=== PATIENT | female | born 1990 | race Caucasian/White ===

== ENCOUNTER 2016-11-24 17:12 | Emergency (ER) | payer OTHER ==
[~2016-11-24] VITALS: Wt 61.0 kg
[~2016-11-24 17:12] MED LIST: AZIT250T6 PO; AZIT500T3 PO; FERR28TA PO; IBUP-1542 PO; PHEN177L2 PO; PREN1TAB49 PO; RTPRO NEB
[2016-11-24 17:59] LABS: ADD SCAN DIFF NO
[2016-11-24 18:01] LABS: BASOPHILS % 0.4 % (0.0-2.0); EOSINOPHILS # 0.6 10^3/ul (0.0-0.5); EOSINOPHILS % 5.1 % (0.0-7.0); HEMATOCRIT 43.3 % (37.0-47.0); HEMOGLOBIN 14.6 g/dl (12.0-16.0); LYMPHOCYTES % 26.7 % (15.0-51.0); MEAN CORPUSCULAR HEMOGLOBIN 30.7 pg (29.0-33.0); MEAN CORPUSCULAR HGB CONC 33.7 g/dl (32.0-37.0); MEAN CORPUSCULAR VOLUME 91.2 fl (82.0-101.0); MEAN PLATELET VOLUME 9.5 fl (7.4-10.4); MONOCYTE # 0.6 10^3/ul (0.3-0.9); MONOCYTES % 5.1 % (0.0-11.0); NEUTROPHILS % 62.3 % (39.0-77.0); PLATELET COUNT 404 10^3/UL (140-415); RED BLOOD COUNT 4.75 10^6/ul (4.20-5.40); RED CELL DISTRIBUTION WIDTH 12.8 % (11.5-14.5); WHITE BLOOD COUNT 11.3 10^3/ul (4.8-10.8)
[2016-11-24 18:14] LABS: ALBUMIN 4.6 g/dl (3.3-4.9)
[2016-11-24 18:15] LABS: POTASSIUM 4.2 mmol/L (3.5-5.1)
[2016-11-24 18:17] LABS: ALBUMIN/GLOBULIN RATIO 1.24; BILIRUBIN,INDIRECT 0.1 mg/dl (0-1.1); BILIRUBIN,TOTAL 0.1 mg/dl (0.2-1.3); CREATININE 0.71 mg/dl (0.44-1.00); TOTAL PROTEIN 8.3 g/dl (6.1-8.1)
[2016-11-24 18:18] LABS: CALCIUM 9.3 mg/dl (8.4-10.2)
[2016-11-24 18:23] LABS: ADD UMIC YES; URINE BILIRUBIN (Dip) NEGATIVE (NEGATIVE); URINE BLOOD (Dip) NEGATIVE (NEGATIVE); URINE COLOR LT. YELLOW (YELLOW); URINE GLUCOSE (Dip) NEGATIVE (NEGATIVE); URINE KETONES (Dip) NEGATIVE (NEGATIVE); URINE LEUKOCYTE ESTERASE (Dip) 3+ (NEGATIVE); URINE NITRITE (Dip) NEGATIVE (NEGATIVE); URINE TOTAL PROTEIN (Dip) NEGATIVE (NEGATIVE); URINE UROBILINOGEN (Dip) 0.2 E.U./dL (0.1-1.0)
[2016-11-24 18:29] LABS: URINE RBCS NONE SEEN /HPF (0)
--- NOTE | 2016-11-24 19:19 | RADRPT ---
PROCEDURE: XR Pelvis CLINICAL INDICATION: IUD placement TECHNIQUE: An AP radiograph was submitted. COMPARISON: None FINDINGS: Osseous structures: appear well mineralized and intact with no fracture or destructive process iden tified. Joint spaces: The hip joints appear unremarkable. There is no distension of either joint capsule. the sacroiliac joints appear unremarkable without significant erosions or sclerosis. Soft tissues: An IUD projects to the superior pelvis just to the left of midline. IMPRESSION: 1. An IUD projects to the superior pelvis just to the left of midline. 2. Otherwise, unremarkable AP pelvis. Physician Sneha Date Time Electronically viewed and signed by Physician Sneha on 11/24/2016 19:19 /
--- NOTE | 2016-11-24 19:33 | ERD ---
ER Documentation Chief Complaint Date/Time DATE: 11/24/16 TIME: 19:31 Chief Complaint ABD PAIN, ONSET 1 WEEK, NO N/V/D, NO VB HPI This is a 26-year-old female presents to the emergency room for evaluation of abdominal pain which she localizes to the lower portion of her abdomen. She describes her pain as a cramping sensation sometimes worse with urination. She denies any vaginal bleeding or vaginal discharge associated with this. She does state that she has an intrauterine device. ROS All systems reviewed and are negative except as per history of present illness. Medications Home Meds Active Scripts Azithromycin* (Zithromax*) 500 Mg Tablet, 500 MG PO DAILY for 5 Days, TAB Prov:WILLEM MAURICIO MD 05/23/16 Ibuprofen* (Motrin*) 600 Mg Tab, 600 MG PO Q6, #15 TAB Prov:WILLEM MAURICIO MD 05/23/16 Phenylephrine/Dm/Acetaminop/Gg (Mucinex Hdjf-Fqy-Caxsmbndua Liquid) 177 Ml Liquid, 5 ML PO Q8 for 7 Days, ML Prov:MANAGMYNOROD,PROPSER P SURGICAL PATHOLOGIST 04/24/16 Ibuprofen* (Motrin*) 600 Mg Tab, 600 MG PO Q6, #30 TAB Prov:MANAGMYNORODPROSPER P SURGICAL PATHOLOGIST 04/24/16 Albuterol Sulfate* (Proventil* Neb) 0.083% Neb, 2.5 MG NEB Q4 Y for SHORTNESS OF BREATH, #30 EA Prov:MARTA LI I. SURGICAL PATHOLOGIST 05/30/15 Azithromycin* (Azithromycin*) 250 Mg Tablet, 250 MG PO DAILY, #4 TAB Prov:MARTA LI I. SURGICAL PATHOLOGIST 05/30/15 Azithromycin* (Zithromax*) 500 Mg Tablet, 500 MG PO DAILY for 1 Day, TAB Prov:MARTA LI I. SURGICAL PATHOLOGIST 05/30/15 Reported Medications Ferrous Sulfate (Ferrous Sulfate) 1 Tab Tablet, 1 TAB PO DAILY for 1 Day 09/19/11 Vits W-Ca,Fe,Fa(<1MG) () 1 Tab Tablet, 1 TAB PO DAILY for 1 Day 09/19/11 Allergies Allergies: Coded Allergies: Penicillins (Verified Allergy, Mild, 06/29/14) PMhx/Soc History of Surgery: No Anesthesia Reaction: No Hx Neurological Disorder: No Hx Respiratory Disorders: No Hx Cardiac Disorders: No Hx Psychiatric Problems: No Hx Miscellaneous Medical Probl: No Hx Alcohol Use: No Hx Substance Use: No Hx Tobacco Use: No Physical Exam Vitals Vital Signs Date Time Temp Pulse Resp B/P Pulse Ox O2 Delivery O2 Flow Rate FiO2 11/24/16 17:16 98.6 80 19 121/70 99 Physical Exam Const: No acute distress Head: Atraumatic Eyes: Normal Conjunctiva ENT: Normal External Ears, Nose and Mouth. Neck: Full range of motion..~ No meningismus. Resp: Clear to auscultation bilaterally Cardio: Regular rate and rhythm, no murmurs Abd: Soft, non tender, non distended. Normal bowel sounds Skin: No petechiae or rashes Back: No midline or flank tenderness Ext: No cyanosis, or edema Neur: Awake and alert Psych: Normal Mood and Affect Result Diagram: 11/24/160 11/24/16 1750 Results 24 hrs Laboratory Tests Test 11/24/16 17:50 White Blood Count 11.310^3/ul Red Blood Count 4.7510^6/ul Hemoglobin 14.6g/dl Hematocrit 43.3% Mean Corpuscular Volume 91.2fl Mean Corpuscular Hemoglobin 30.7pg Mean Corpuscular Hemoglobin Concent 33.7g/dl Red Cell Distribution Width 12.8% Platelet Count 85020^3/UL Mean Platelet Volume 9.5fl Neutrophils % 62.3% Lymphocytes % 26.7% Monocytes % 5.1% Eosinophils % 5.1% Basophils % 0.4% Nucleated Red Blood Cells % 0.0/100WBC Neutrophils # 7.010^3/ul Lymphocytes # 3.010^3/ul Monocytes # 0.610^3/ul Eosinophils # 0.610^3/ul Basophils # 0.010^3/ul Nucleated Red Blood Cells # 0.010^3/ul Urine Color LT. YELLOW Urine Clarity CLEAR Urine pH 7.0 Urine Specific [place] 1.010 Urine Ketones NEGATIVE Urine Nitrite NEGATIVE Urine Bilirubin NEGATIVE Urine Urobilinogen 0.2 E.U./dL Urine Leukocyte Esterase 3+ Urine Microscopic RBC NONE SEEN/HPF Urine Microscopic WBC 2-5/HPF Urine Epithelial Cells OCCASIONAL Urine Hemoglobin NEGATIVE Urine Glucose NEGATIVE% Urine Total Protein NEGATIVE Urine Test NEGATIVE Sodium Level 141mmol/L Potassium Level 4.2mmol/L Chloride Level 102mmol/L Carbon Dioxide Level 26mmol/L Anion Gap 17 Blood Urea Nitrogen 12mg/dl Creatinine 0.71mg/dl Glucose Level 101mg/dl Calcium Level 9.3mg/dl Total Bilirubin 0.1mg/dl Direct Bilirubin 0.00mg/dl Indirect Bilirubin 0.1mg/dl Aspartate Amino Transf (AST/SGOT) 24IU/L Alanine Aminotransferase (ALT/SGPT) 33IU/L Alkaline Phosphatase 92IU/L Total Protein 8.3g/dl Albumin 4.6g/dl Globulin 3.70g/dl Albumin/Globulin Ratio 1.24 Lipase 151U/L Procedures/MDM X-ray Pelvis 1V Interpreted by me: Bones: [No fracture] Joints: [No dislocation] Foreign body: Intrauterine device This 26-year-old female presents to the emergency room for evaluation of lower abdominal discomfort. When I evaluated this patient she did not have an acute abdomen, nonsurgical abdomen. Urinalysis does reveal 3+ leukocyte Estrace. Lab work is within normal limits and x-ray of the pelvis does not demonstrate malpositioning of the intrauterine device. This patient will be discharged at this time with a prescription for ciprofloxacin for acute cystitis Departure Diagnosis: Primary Impression: Acute cystitis Condition: Stable MARLENE BELTRAN DO November 24, 2016 19:33
[2016-11-24] MEDS ORDERED: CIPR500T4 PO (19:34)
== END 2016-11-24 19:48 | disposition home or self-care (01) ==
LOC: FTE 17:12
DX: N30.00 Acute cystitis without hematuria (principal)
CPT/HCPCS: 72170; 80053; 81001; 83690; 84703; 85025; Z7502

== ENCOUNTER 2017-03-29 20:43 | Emergency (ER) | payer SELFPAY ==
[~2017-03-29] VITALS: Ht 160 cm; Wt 62.5 kg
[~2017-03-29 20:43] MED LIST changes: +CIPR500T4 PO
[2017-03-29 20:49] VITALS: Ht 160 cm; Wt 62.5 kg
== END 2017-03-29 21:37 | disposition left against medical advice (07) ==
LOC: FTE 20:43
DX: Z53.21 Procedure and treatment not carried out due to patient leaving prior to being seen by health care provider (principal)

== ENCOUNTER 2017-05-13 07:21 | Emergency (ER) | payer OTHER ==
[~2017-05-13] VITALS: Ht 157.5 cm; Wt 62.2 kg
[2017-05-13 07:26] VITALS: Ht 157.5 cm; Wt 62.2 kg
[2017-05-13] MEDS ORDERED: ACYC400T2 PO (07:43)
[2017-05-13] MEDS ORDERED: HYDR-906 PO (08:10)
--- NOTE | 2017-05-13 09:13 | ERD ---
ER Documentation Chief Complaint Chief Complaint Complains of a rash/bite on left arm HPI This is a 19-year-old female presenting to emergency department for pruritic rash to left forearm. Patient states she had burning sensation in the forearm and then about 12 hours later developed pruritic rash. Patient also states rash is painful. No sick contacts. No fevers or chills. No shortness of breath or difficulty breathing. No wheezing. No new lotion, soaps, food or medications. Patient did not take any medications for this. ROS All systems reviewed and are negative except as per history of present illness. Medications Home Meds Active Scripts Acyclovir* (Acyclovir*) 400 Mg Tablet, 400 MG PO TID for 10 Days, TAB Prov:CLARITA RICHARDSON NP 05/13/17 Ciprofloxacin Hcl* (Ciprofloxacin Hcl*) 500 Mg Tablet, 500 MG PO BID for 7 Days , TAB Prov:MARLENE BELTRAN DO 11/24/16 Azithromycin* (Zithromax*) 500 Mg Tablet, 500 MG PO DAILY for 5 Days, TAB Prov:WILLEM MAURICIO MD 05/23/16 Ibuprofen* (Motrin*) 600 Mg Tab, 600 MG PO Q6, #15 TAB Prov:WILLEM MAURICIO MD 05/23/16 Phenylephrine/Dm/Acetaminop/Gg (Mucinex Stbi-Sgv-Hksuecpdkq Liquid) 177 Ml Liquid, 5 ML PO Q8 for 7 Days, ML Prov:PROSPER VELEZ NP 04/24/16 Ibuprofen* (Motrin*) 600 Mg Tab, 600 MG PO Q6, #30 TAB Prov:PROSPER VELEZ DELIVERY ROOM SUPERVISOR 04/24/16 Albuterol Sulfate* (Proventil* Neb) 0.083% Neb, 2.5 MG NEB Q4 Y for SHORTNESS OF BREATH, #30 EA Prov:MARTA LI NP 05/30/15 Azithromycin* (Azithromycin*) 250 Mg Tablet, 250 MG PO DAILY, #4 TAB Prov:MARTA LI NP 05/30/15 Azithromycin* (Zithromax*) 500 Mg Tablet, 500 MG PO DAILY for 1 Day, TAB Prov:MARTA LI NP 05/30/15 Reported Medications Ferrous Sulfate (Ferrous Sulfate) 1 Tab Tablet, 1 TAB PO DAILY for 1 Day 09/19/11 Vits W-Ca,Fe,Fa(<1MG) () 1 Tab Tablet, 1 TAB PO DAILY for 1 Day 09/19/11 Discontinued Scripts Hydrocodone/Acetaminophen ([place] 5-325 Tablet) 1 Each Tablet, 1 TAB PO Q6H Y for PAIN, #7 TAB Prov:CLARITA RICHARDSON DELIVERY ROOM SUPERVISOR 05/13/17 Allergies Allergies: Coded Allergies: Penicillins (Verified Allergy, Mild, 11/24/16) PMhx/Soc History of Surgery: No Anesthesia Reaction: No Hx Neurological Disorder: No Hx Respiratory Disorders: Yes (asthma) Hx Cardiac Disorders: No Hx Psychiatric Problems: No Hx Miscellaneous Medical Probl: No Hx Alcohol Use: No Hx Substance Use: No Hx Tobacco Use: No Physical Exam Vitals Vital Signs Date Time Temp Pulse Resp B/P Pulse Ox O2 Delivery O2 Flow Rate FiO2 05/13/17 07:26 99.2 80 20 124/82 100 Physical Exam Const: no acute distress, alert Head: Atraumatic Eyes: Normal Conjunctiva ENT: Normal External Ears, Nose and Mouth. Neck: Full range of motion..~ No meningismus. Resp: Clear to auscultation bilaterally. No wheezing, rhonchi or crackles. No stridor or labored breathing. Skin: Patch of vesicular lesions to left forearm with white center, dorsal aspect. no drainage or bleeding. no lymphatic streaking. no surrounding erythema. Back: No midline or flank tenderness Ext: No cyanosis, or edema Neur: Awake and alert Psych: Normal Mood and Affect Procedures/MDM MDM: This is a 27-year-old female presenting to emergency department for pruritic, painful rash to dorsal aspect of left forearm. Patient is afebrile vital signs are stable. No signs or symptoms of respiratory distress. No angioedema. Patient likely has herpes simplex virus. Low suspicion for allergic reaction or contact dermatitis or abscess Patient is appropriate for outpatient management will be given prescription for acyclovir. Instructed patient to follow-up with primary care provider in the next 2-3 days for reassessment and additional management. Return to ED for any high fever, chest pain, difficulty breathing, shortness breath, wheezing, vomiting, diarrhea, abdominal pain or any new or worsening symptoms. Patient verbalizes understanding. All questions answered at discharge. Disclaimer: Inadvertent spelling and grammatical errors are likely due to EHR/ dictation software use and do not reflect on the overall quality of patient care. Also, please note that the electronic time recorded on this note does not necessarily reflect the actual time of the patient encounter. Departure Diagnosis: Primary Impression: Rash and nonspecific skin eruption Condition: Stable Patient Instructions: The Herpes Virus Referrals: [facility] YOU HAVE RECEIVED A MEDICAL SCREENING EXAM AND THE RESULTS INDICATE THAT YOU DO NOT HAVE A CONDITION THAT REQUIRES URGENT TREATMENT IN THE EMERGENCY DEPARTMENT. FURTHER EVALUATION AND TREATMENT OF YOUR CONDITION CAN WAIT UNTIL YOU ARE SEEN IN YOUR DOCTORS OFFICE WITHIN THE NEXT 1-2 DAYS. IT IS YOUR RESPONSIBILITY TO MAKE AN APPOINTMENT FOR FOLOW-UP CARE. IF YOU HAVE A PRIMARY DOCTOR --you should call your primary doctor and schedule an appointment IF YOU DO NOT HAVE A PRIMARY DOCTOR YOU CAN CALL OUR PHYSICIAN REFERRAL HOTLINE AT IF YOU CAN NOT AFFORD TO SEE A PHYSICIAN YOU CAN CHOSE FROM THE FOLLOWING [facility] [address] [facility] [address] [facility] [facility] [address] [facility] [address] [facility] [address] [facility]. [facility]. [address] [facility] YOU HAVE RECEIVED A MEDICAL SCREENING EXAM AND THE RESULTS INDICATE THAT YOU DO NOT HAVE A CONDITION THAT REQUIRES URGENT TREATMENT IN THE EMERGENCY DEPARTMENT. FURTHER EVALUATION AND TREATMENT OF YOUR CONDITION CAN WAIT UNTIL YOU ARE SEEN IN YOUR DOCTORS OFFICE WITHIN THE NEXT 1-2 DAYS. IT IS YOUR RESPONSIBILITY TO MAKE AN APPOINTMENT FOR FOLOW-UP CARE. IF YOU HAVE A PRIMARY DOCTOR --you should call your primary doctor and schedule and appointment IF YOU DO NOT HAVE A PRIMARY DOCTOR YOU CAN CALL OUR PHYSICIAN REFERRAL HOTLINE AT . IF YOU CAN NOT AFFORD TO SEE A PHYSICIAN YOU CAN CHOSE FROM THE FOLLOWING [facility]: [facility] [place] [address] [place] [address] [facility] [address] [place] [address] [facility] [address] [place] [address] Additional Instructions: Call your primary care doctor TOMORROW for an appointment during the next 2-3 days.See the doctor sooner or return here if your condition worsens before your appointment time. Return to ED for any high fever, chest pain, difficulty breathing, shortness breath, wheezing, vomiting, diarrhea, abdominal pain or any new or worsening symptoms. CLARITA RICHARDSON NP May 13, 2017 09:13
== END 2017-05-13 08:06 | disposition home or self-care (01) ==
LOC: FTE 07:21
DX: R21 Rash and other nonspecific skin eruption (principal); J45.909 Unspecified asthma, uncomplicated
CPT/HCPCS: 99283

== ENCOUNTER 2017-06-19 18:02 | Emergency (ER) | payer MEDICAID, OTHER ==
[~2017-06-19] VITALS: Ht 170.2 cm; Wt 64.1 kg
[~2017-06-19 18:02] MED LIST changes: +ACYC400T2 PO; +AZIT250T13 PO; -AZIT250T6 PO
[2017-06-19 18:14] VITALS: Ht 170.2 cm; Wt 64.1 kg
[2017-06-19] MEDS ORDERED: IBUPROFEN 600 MG TAB PO ONE (20:00)
[2017-06-19 20:57] LABS: ADD UMIC YES; UR ASCORBIC ACID NEGATIVE (NEGATIVE); UR BACTERIA FEW /HPF (NONE SEEN); UR BILIRUBIN (Dip) NEGATIVE (NEGATIVE); UR BLOOD (Dip) NEGATIVE (NEGATIVE); UR CLARITY SLIGHTLY CLOUDY (CLEAR); UR COLOR YELLOW (YELLOW); UR GLUCOSE (Dip) NEGATIVE (NEGATIVE); UR KETONES (Dip) NEGATIVE (NEGATIVE); UR LEUKOCYTE ESTERASE (Dip) 3+ Leu/ul (NEGATIVE); UR NITRITE (Dip) NEGATIVE (NEGATIVE); UR RBC 4 /HPF (0-5); UR SPECIFIC GRAVITY (Dip) 1.008 (1.003-1.030); UR SQUAMOUS EPITHELIAL CELL FEW /HPF (FEW); UR TOTAL PROTEIN (Dip) NEGATIVE (NEGATIVE); UR UROBILINOGEN (Dip) NEGATIVE (NEGATIVE)
--- NOTE | 2017-06-19 21:35 | RADRPT ---
PROCEDURE: US Non-OB Pelvis. CLINICAL INDICATION: Pelvic pain, irregular periods after IUD placed in March 2017. TECHNIQUE: Multiple sonographic images of the pelvis were obtained utilizing a transabdominal tech nique. The images were reviewed on a PACS workstation. COMPARISON: None. FINDINGS: The uterus is visualized and measures 7.5 x 3.9 x 6.3 cm. There is an intrauterine device in place w ithin the endometrial canal. The endometrial thickness is not clearly visualized. The right ovary measures 3.5 x 2.0 x 3.6 cm. The left ovary measures 3.2 x 1.3 x 2.4 cm. Blood flow is demonstrated to both ovaries. No adnexal masses are noted. There is no evidence of free fluid. IMPRESSION: 1. Intrauterine device in place. The endometrial thickness is not clearly visualized. 2. Normal appearance of the ovaries. RPTAT: HTAR .Chepe Allen MD, Date Time Electronically viewed and signed by .Chepe Allen MD, on 06/19/2017 21:34 .R/
[2017-06-19] MEDS ORDERED: CEPH-443 PO (21:42)
[2017-06-19] MEDS ORDERED: IBUP400T22 PO (21:42)
--- NOTE | 2017-06-19 23:34 | ERD ---
ER Documentation Chief Complaint Chief Complaint Pt with breast, AP, and pelvic pain X 3 weeks. HPI This is a 27-year-old female presenting to the emergency department complaining of bilateral breast pain and on and off pelvic pain for the past few weeks. She states that her last menstrual period was May and her periods are usually irregular. She states that she has an IUD in place. She denies any fevers, dysuria, vomiting diarrhea constipation. ROS All systems reviewed and are negative except as per history of present illness. Medications Home Meds Active Scripts Cephalexin* (Keflex*) 500 Mg Capsule, 500 MG PO BID for 5 Days, CAP Prov:EKTA MCLEAN PA-C 06/19/17 Ibuprofen* (Motrin*) 400 Mg Tab, 400 MG PO Q6H Y for PAIN AND OR ELEVATED TEMP, #30 TAB Prov:EKTA MCLEAN PA-C 06/19/17 Acyclovir* (Acyclovir*) 400 Mg Tablet, 400 MG PO TID for 10 Days, TAB Prov:CLARITA RICHARDSON NP 05/13/17 Ciprofloxacin Hcl* (Ciprofloxacin Hcl*) 500 Mg Tablet, 500 MG PO BID for 7 Days , TAB Prov:MARLENE BELTRAN DO 11/24/16 Azithromycin* (Zithromax*) 500 Mg Tablet, 500 MG PO DAILY for 5 Days, TAB Prov:WILLEM MAURICIO MD 05/23/16 Ibuprofen* (Motrin*) 600 Mg Tab, 600 MG PO Q6, #15 TAB Prov:WILLEM MAURICIO MD 05/23/16 Phenylephrine/Dm/Acetaminop/Gg (Mucinex Zkma-Eky-Cvqvekzsgw Liquid) 177 Ml Liquid, 5 ML PO Q8 for 7 Days, ML Prov:MANAGMYNOROD,PROSPER P ORGAN BUILDER 04/24/16 Ibuprofen* (Motrin*) 600 Mg Tab, 600 MG PO Q6, #30 TAB Prov:MIKAELAODPROSPER P ORGAN BUILDER 04/24/16 Albuterol Sulfate* (Proventil* Neb) 0.083% Neb, 2.5 MG NEB Q4 Y for SHORTNESS OF BREATH, #30 EA Prov:MARTA LI NP 05/30/15 Azithromycin* (Azithromycin*) 250 Mg Tablet, 250 MG PO DAILY, #4 TAB Prov:MARTA LI I. ORGAN BUILDER 05/30/15 Azithromycin* (Zithromax*) 500 Mg Tablet, 500 MG PO DAILY for 1 Day, TAB Prov:MARTA LI I. ORGAN BUILDER 05/30/15 Reported Medications Ferrous Sulfate (Ferrous Sulfate) 1 Tab Tablet, 1 TAB PO DAILY for 1 Day 09/19/11 Vits W-Ca,Fe,Fa(<1MG) () 1 Tab Tablet, 1 TAB PO DAILY for 1 Day 09/19/11 Allergies Allergies: Coded Allergies: Penicillins (Verified Allergy, Mild, 11/24/16) PMhx/Soc History of Surgery: No Anesthesia Reaction: No Hx Neurological Disorder: No Hx Respiratory Disorders: Yes (asthma) Hx Cardiac Disorders: No Hx Psychiatric Problems: No Hx Miscellaneous Medical Probl: No Hx Alcohol Use: No Hx Substance Use: No Hx Tobacco Use: No Smoking Status: Never smoker Physical Exam Vitals Vital Signs Date Time Temp Pulse Resp B/P Pulse Ox O2 Delivery O2 Flow Rate FiO2 06/19/17 18:14 97.7 76 18 133/92 99 Physical Exam GENERAL: well-developed/well-nourished, in no apparent distress, non-toxic appearing HENT: NC/AT, moist mucous membranes EYES: Conjunctiva normal NECK: Supple, no lymphadenopathy PULM: CTA bilaterally, no rales, rhonchi, or wheezing heard CV: Normal S1S2, RRR, good capillary refill GI: Soft, non-distended, tender to palpation Normal bowel sounds, no masses or organomegaly felt on exam No gross peritonitis, no bruits Negative Rovsing, negative King, negative McBurney's point, Negative CVAT BACK: No masses EXT: No clubbing, cyanosis, or edema NEURO: Alert and Orientated SKIN: Intact, normal turgor BREAST: Fibrocystic breast noted PSYCH: Normal mood and mentation Results 24 hrs Laboratory Tests Test 06/19/17 20:00 Urine Color YELLOW Urine Clarity SLIGHTLY CLOUDY Urine pH 7.0 Urine Specific [place] 1.008 Urine Ketones NEGATIVEmg/dL Urine Nitrite NEGATIVEmg/dL Urine Bilirubin NEGATIVEmg/dL Urine Urobilinogen NEGATIVEmg/dL Urine Leukocyte Esterase 3+Jossie/ul Urine Microscopic RBC 4/HPF Urine Microscopic WBC 8/HPF Urine Squamous Epithelial Cells FEW/HPF Urine Bacteria FEW/HPF Urine Hemoglobin NEGATIVEmg/dL Urine Glucose NEGATIVEmg/dL Urine Total Protein NEGATIVEmg/dl Current Medications Medications (Trade) Dose Ordered Sig/Radha Route PRN Reason Start Time Stop Time Status Last Admin Dose Admin Ibuprofen (Motrin) 600 mg ONCE ONCE PO 06/19/17 20:00 06/19/17 20:01 DC 06/19/17 20:46 Procedures/MDM 87-year-old female presents to the emergency department complaining of bilateral breast pain likely fibrocystic breast changes however have discussed with her that she will need to continue to follow-up with her primary care physician to get further evaluation management. Patient also complains of pelvic pain which is likely due to urinary tract infection or other hormonal changes. There is no evidence of any overt ovarian torsion or ruptured ovarian cyst. Pelvic ultrasound shows the IUD is in place. Urinalysis showed positive leukocyte esterase for a urinary tract infection. Patient was given Prescription for Keflex and ibuprofen. Discussed return to the ER for any worsening signs or symptoms Departure Diagnosis: Primary Impression: Fibrocystic breast changes Additional Impression: UTI (urinary tract infection) Condition: Stable Patient Instructions: Understanding Urinary Tract Infections (UTIs), Fibrocystic Breast Disease, Presumed Additional Instructions: FOLLOW UP WITH YOUR PRIMARY CARE PHYSICIAN TOMORROW.Return to this facility if you are not improving as expected. Take all medicines as directed. Return to this facility if you are not improving as expected. EKTA MCLEAN PA-C Jun 19, 2017 23:34
== END 2017-06-19 21:50 | disposition home or self-care (01) ==
LOC: FTE 18:02
DX: N60.01 Solitary cyst of right breast (principal); N60.02 Solitary cyst of left breast; N39.0 Urinary tract infection, site not specified; J45.909 Unspecified asthma, uncomplicated; R10.2 Pelvic and perineal pain
CPT/HCPCS: 76856; 81001; Z7502; Z7610

== ENCOUNTER 2017-08-06 05:31 | Emergency (ER) | END 2017-08-06 09:20 | disposition home or self-care (01) ==

== ENCOUNTER 2017-11-27 05:14 | Emergency (ER) | END 2017-11-27 07:25 | disposition home or self-care (01) ==

== ENCOUNTER 2017-12-30 20:33 | Emergency (ER) | END 2017-12-30 22:20 | disposition home or self-care (01) ==

== ENCOUNTER 2018-06-13 10:08 | Emergency (ER) | END 2018-06-13 11:27 | disposition home or self-care (01) ==

== ENCOUNTER 2018-10-03 14:52 | Emergency (ER) | payer SELFPAY ==
[~2018-10-03] VITALS: Ht 152.4 cm; Wt 66.0 kg
[~2018-10-03 14:52] MED LIST changes: +ALBU18HF INHALATION; +ALBU2.5V3 NEB; +ALBU8.5H8 INH; +AZIT250T PO; +BENZ-6 PO; +CEPH-443 PO; +CETI10CA PO; +CYCL10TA7 PO; +FLUT9.9S NASAL; +GUAI120S26 PO; +HYDR-4011 PO; +IBUP-1561 PO; +PRED20TA PO
[2018-10-03 15:04] VITALS: BP 118/75; PULSE 88; RESP 16; Ht 152.4 cm; Wt 66.0 kg
--- NOTE | 2018-10-03 16:47 | ERD ---
ER Documentation Chief Complaint Chief Complaint RASH X 1 MONTH, INCREASED ITCHING WITH SWOLLEN FINGERS HPI 28-year-old female with past medical history of asthma, eczema who presents with 1 month complaint of rash on both hands. Patient having nontender nonpainful itchy rash which started in the webbing of right hand subsequently developed on the left side but worse still on the right. Has suffered from intermittent exam of flareups in the past. Has been using eczema lotion [place] as well as Neosporin with minimal improvement in symptoms. She otherwise denies fevers chills numbness or weakness and both hands. She has an appointment with her PMD tomorrow but decided to present to the ED because she was concerned the blisters are getting worse. At time of examination patient is nontoxic-appearing. Triage vital signs without fever with rest of vitals within normal limits. She otherwise has been pretty much healthy and reports no recent illness. Denies bed bugs at home or persons at home with similar symptoms. ROS All systems reviewed and are negative except as per history of present illness. Medications Home Meds Active Scripts Albuterol Sulfate* (Ventolin HFA*) 18 Gm Hfa.aer.ad, 2 PUFF INHALATION Q4H, #1 INHALER Prov:KEDAR CONNOR PA-C 06/13/18 Benzonatate* (Tessalon Perle*) 100 Mg Capsule, 100 MG PO Q8H PRN for COUGH, #20 CAP Prov:KEDAR CONNOR PA-C 06/13/18 Azithromycin* (Zithromax*) 250 Mg Tablet, 250 MG PO .ZPACK DIRECTED, #6 TAB TAKE 500 MG (2 TABS) THE FIRST DAY THEN 250 MG (1 TAB) DAYS 2-5 Prov:KEDAR CONNOR PA-C 06/13/18 Cyclobenzaprine Hcl* (Cyclobenzaprine Hcl*) 10 Mg Tablet, 10 MG PO TID, #15 TAB Prov:DEVORAH MEHTA NP 12/30/17 Hydrocodone/Acetaminophen (Daphne 5-325 Tablet) 1 Each Tablet, 1 TAB PO Q6H PRN for PAIN, #7 TAB Prov:DEVORAH MEHTA NP 18 Ibuprofen* (Motrin*) 600 Mg Tab, 600 MG PO Q6H PRN for PAIN AND OR ELEVATED TEMP, #30 TAB Prov:DEVORAH MEHTA NP 12/30/17 Prednisone* (Prednisone*) 20 Mg Tab, 40 MG PO DAILY for 4 Days, TAB Prov:ROGERIO MERCADOC 11/27/17 Fluticasone Propionate (Flonase Allergy Relief) 9.9 Ml [place].susp, 2 SPRAY NASAL DAILY, #1 BOTTLE TO EACH NOSTRIL Prov:ROGERIO MERCADOC 11/27/17 Albuterol Sulfate* (Albuterol Sulfate* Neb) 0.083%-3 Ml Neb, 2.5 MG NEB Q4 PRN for SHORTNESS OF BREATH, #30 EA Prov:ROGERIO MERCADO PA-C 11/27/17 Albuterol Sulfate* (Ventolin HFA*) 18 Gm Hfa.aer.ad, 2 PUFF INHALATION Q4H, #1 INHALER Prov:ROGERIO MERCADO PA-C 11/27/17 Cetirizine Hcl* (Zyrtec*) 10 Mg Capsule, 10 MG PO DAILY, #14 TAB.CHEW Prov:ROGERIO MERCADOC 11/27/17 Azithromycin* (Zithromax*) 250 Mg Tablet, 250 MG PO .ZPACK DIRECTED, #6 TAB TAKE 500 MG (2 TABS) THE FIRST DAY THEN 250 MG (1 TAB) DAYS 2-5 Prov:ROGERIO MERCADOC 11/27/17 Ibuprofen* (Motrin*) 600 Mg Tab, 600 MG PO Q6H PRN for PAIN AND OR ELEVATED TEMP, #30 TAB Prov:DEVORAH MEHTA NP 11/17/17 Cetirizine Hcl* (Zyrtec*) 10 Mg Capsule, 10 MG PO DAILY, #30 TAB.CHEW Prov:DEVORAH MEHTA NP 11/17/17 Ejyppglygxt-K-Qcstuuybgq Hb* (Guaifenesin* DM Syrup) 120 Ml Syrup, 10 ML PO Q4H PRN for COUGH, #120 ML Prov:DEVORAH MEHTA NP 11/17/17 Albuterol Sulfate* (Proair HFA*) 8.5 Gm Hfa.aer.ad, 2 PUFF INH Q4H PRN for WHEEZING AND SOB, #1 INHALER Prov:DEVORAH MEHTA NP 11/17/17 Prednisone* (Prednisone*) 20 Mg Tab, 40 MG PO DAILY for 5 Days, TAB Prov:TANGELA DUNHAMC 08/06/17 Cephalexin* (Keflex*) 500 Mg Capsule, 500 MG PO BID for 5 Days, CAP Prov:EKTA MCLEANC 06/19/17 Ibuprofen* (Motrin*) 400 Mg Tab, 400 MG PO Q6H PRN for PAIN AND OR ELEVATED TEMP, #30 TAB Prov:EKTA MCLEAN PA-C 06/19/17 Acyclovir* (Acyclovir*) 400 Mg Tablet, 400 MG PO TID for 10 Days, TAB Prov:CLARITA RICHARDSON NP 05/13/17 Ciprofloxacin Hcl* (Ciprofloxacin Hcl*) 500 Mg Tablet, 500 MG PO BID for 7 Days, TAB Prov:MARLENE BELTRAN DO 11/24/16 Azithromycin* (Zithromax*) 500 Mg Tablet, 500 MG PO DAILY for 5 Days, TAB Prov:WILLEM MAURICIO MD 05/23/16 Ibuprofen* (Motrin*) 600 Mg Tab, 600 MG PO Q6, #15 TAB Prov:WILLEM MAURICIO MD 05/23/16 Phenylephrine/Dm/Acetaminop/Gg (Mucinex Rwkp-Beu-Mprxswhfjf Liquid) 177 Ml Liquid, 5 ML PO Q8 for 7 Days, ML Prov:PROSPER VELEZ P [employer] 04/24/16 Ibuprofen* (Motrin*) 600 Mg Tab, 600 MG PO Q6, #30 TAB Prov:PROSPER VELEZ P [employer] 04/24/16 Albuterol Sulfate* (Proventil* Neb) 0.083% Neb, 2.5 MG NEB Q4 PRN for SHORTNESS OF BREATH, #30 EA Prov:MARTA LI I. [employer] 05/30/15 Azithromycin* (Azithromycin*) 250 Mg Tablet, 250 MG PO DAILY, #4 TAB Prov:MARTA LI I. [employer] 05/30/15 Azithromycin* (Zithromax*) 500 Mg Tablet, 500 MG PO DAILY for 1 Day, TAB Prov:MARTA LI I. [employer] 05/30/15 Reported Medications Ferrous Sulfate (Ferrous Sulfate) 1 Tab Tablet, 1 TAB PO DAILY for 1 Day 09/19/11 Vits W-Ca,Fe,Fa(<1MG) () 1 Tab Tablet, 1 TAB PO DAILY for 1 Day 09/19/11 Allergies Allergies: Coded Allergies: Penicillins (Verified Allergy, Mild, 06/13/18) PMhx/Soc History of Surgery: No Anesthesia Reaction: No Hx Neurological Disorder: No Hx Respiratory Disorders: Yes (ASTHMA ) Hx Cardiac Disorders: No Hx Psychiatric Problems: No Hx Miscellaneous Medical Probl: No Hx Alcohol Use: No Hx Substance Use: No Hx Tobacco Use: No Physical Exam Vitals Vital Signs Date Temp Pulse Resp B/P (MAP) Pulse Ox O2 O2 Flow FiO2 Time Delivery Rate 10/03/18 99.6 88 16 118/75 97 15:04 (89) Physical Exam I have reviewed the triage vital signs. Const: Well nourished, well developed, appears stated age Eyes: PERRL, no conjunctival injection HENT: NCAT, Neck supple without meningismus CV: RRR, Warm, well-perfused extremities RESP: CTAB, Unlabored respiratory effort GI: soft, non-tender, non-distended, no masses MSK: No gross deformities appreciated Skin: Warm, dry. small vesicles to b/l hands, areas of excoriation. no other areas of rash, no other lesions noted Neuro: grossly non focal Psych: Appropriate mood and affect. Procedures/MDM 28 yo Female presents with 1 month complaint of rash on both hands. Symptoms likely represent flare of chronic eczema given her atopy. She has no signs or symptoms but given concern for systemic infection such as septic joint or any other emergent etiology of rash. I have advised her to follow-up with her PMD as scheduled tomorrow for further evaluation of her complaints. DISPOSITION PLAN: We discussed follow up with the patient's primary care doctor within 24 to 48 hours. Patient counseled regarding my diagnostic impression and care plan. Prior to discharge all questions answered. Pt agrees with treatment plan and understands strict return precautions. Precautionary instructions provided including instructions to return to the ER if not improving or for any worsening or changing symptoms or concerns. Departure Diagnosis: Primary Impression: Eczema Additional Impression: Rash and nonspecific skin eruption Condition: Stable Patient Instructions: Atopic Dermatitis (Eczema) Additional Instructions: Call your primary care doctor TOMORROW for an appointment during the next 2-3 days.See the doctor sooner or return here if your condition worsens before your appointment time. Follow up with your PMD tomorrow as scheduled. BENITA BELL PA-C Oct 03, 2018 16:47
== END 2018-10-03 17:32 | disposition home or self-care (01) ==
LOC: FTE 14:52
DX: L30.9 Dermatitis, unspecified (principal); J45.909 Unspecified asthma, uncomplicated
CPT/HCPCS: 99282

== ENCOUNTER 2019-02-20 19:19 | Emergency (ER) | payer OTHER ==
[~2019-02-20] VITALS: Ht 154.9 cm; Wt 58.0 kg
[~2019-02-20 19:19] MED LIST changes: +BUTA1CAP38 PO; +GUAI120S25 PO; -GUAI120S26 PO
[2019-02-20 19:42] VITALS: BP 126/77; PULSE 76; RESP 16; Ht 154.9 cm; Wt 58.0 kg
[2019-02-20] MEDS ORDERED: ACETAMINOPHEN 325 MG TAB PO ONE (21:30)
[2019-02-20] MEDS ORDERED: CEPHALEXIN 500 MG CAP PO ONE (21:30)
== END 2019-02-20 22:15 | disposition home or self-care (01) ==
LOC: FTE 19:19
DX: N39.0 Urinary tract infection, site not specified (principal); J45.909 Unspecified asthma, uncomplicated
CPT/HCPCS: 36415; 70450; 80048; 81001; 81025; 85025; Z7502; Z7610